=== PATIENT | male | born 1960 | race African-American/Black ===

== ENCOUNTER 2024-12-15 08:17 | Inpatient (IN) | payer OTHER ==
[~2024-12-15] VITALS: Ht 182.9 cm; Wt 90.7 kg
[2024-12-15 08:20] VITALS: TEMP 98.4
[2024-12-15] MEDS ORDERED: 0.9% SODIUM CHLORIDE 10 ML SYRINGE IVP ONE (08:47)
[2024-12-15] MEDS ORDERED: SODIUM CHLORIDE 0.9% 100 ML ONE (08:47)
[2024-12-15] MEDS ORDERED: IOHEXOL 350 MG/ML 100 ML VIAL ONE (08:47)
[2024-12-15 08:50] LABS: PLATELET COUNT (AUTO) 172 K/uL (150-450); RED BLOOD CELL COUNT(AUTO) 4.62 MIL/uL (4.50-5.90); RED CELL DISTRIBUTION WIDTH 13.8 % (11.5-14.5); WHITE BLOOD COUNT (AUTO) 9.8 K/uL (4.5-11.0)
[2024-12-15 08:57] LABS: CALCIUM, TOTAL 8.4 mg/dL (8.8-10.5); CREATININE 1.27 mg/dL (0.60-1.30); GLOMERULAR FILTR. RATE CALC > 60 mL/min (>60); GLUCOSE,RANDOM 91 mg/dL (70-110); SODIUM SERUM 144 mmol/L (136-145); UREA NITROGEN, BLOOD 25 mg/dL (7-18)
[2024-12-15] MEDS ORDERED: ASPIRIN 325 MG TABLET PO ONE (09:00)
[2024-12-15 09:01] LABS: ASPARTATE AMINOTRANSFERASE 36 U/L (15-37); TOTAL PROTEIN, SERUM 7.5 g/dL (6.4-8.2)
[2024-12-15 09:06] LABS: TROPONIN I-HIGH SENSITIVITY 146 ng/L (<76)
[2024-12-15 09:21] LABS: ALCOHOL, BLOOD (SERUM) 4.0 mg/dL (0-10)
[2024-12-15] MEDS: ASPIRIN 300 MG RECTAL SUPPOSITORY PR ONE (09:24)
[2024-12-15] MEDS ORDERED: HYDR25TA2 PO (10:11)
[2024-12-15] MEDS ORDERED: AMLO-257 PO (10:11)
[2024-12-15 10:28] VITALS: BP 164/100; PULSE 77; RESP 20; O2SAT 96
[2024-12-15 11:03] LABS: TROPONIN I-HIGH SENSITIVITY 152 ng/L (<76)
[2024-12-15] MEDS ORDERED: LABETALOL HCL 5 MG/ML 20 ML VIAL IVP PRN (12:00)
[2024-12-15] MEDS ORDERED: ONDANSETRON HCL 4 MG/2 ML VIAL IVP PRN (12:00)
[2024-12-15] MEDS ORDERED: ASPIRIN 81 MG CHEWABLE TABLET PO ONE (12:00)
[2024-12-15] MEDS ORDERED: ACETAMINOPHEN 325 MG TABLET PO PRN (12:00)
[2024-12-15] MEDS ORDERED: HEPARIN SODIUM,PORCINE 5,000 UNITS/ML VIAL SQ SCH (16:00)
[2024-12-15] MEDS ORDERED: DOCUSATE SODIUM 100 MG CAPSULE PO SCH (21:00)
[2024-12-15] MEDS ORDERED: ATORVASTATIN CALCIUM 40 MG TABLET PO SCH (21:00)
[2024-12-16] MEDS ORDERED: ASPIRIN 81 MG CHEWABLE TABLET PO SCH (09:00)
[2024-12-16] MEDS ORDERED: CLOPIDOGREL BISULFATE 75 MG TABLET PO SCH (09:00)
== END 2024-12-15 12:28 | disposition left against medical advice (07) | DRG 64 ==
LOC: EMS 08:17 → EDH 10:32 → 5N 11:45
PROVIDERS: ADMIT Internal Medicine; ATTEND Internal Medicine
DX: I63.9 Cerebral infarction, unspecified (principal); I21.4 Non-ST elevation (NSTEMI) myocardial infarction; E87.3 Alkalosis; I10 Essential (primary) hypertension; Z53.29 Procedure and treatment not carried out because of patient's decision for other reasons; Z96.649 Presence of unspecified artificial hip joint; R13.10 Dysphagia, unspecified; Z79.899 Other long term (current) drug therapy; Z86.72 Personal history of thrombophlebitis
CPT/HCPCS: 70496; 70498; 71045; 80053; 82948; 83690; 83735; 84484; 85025; 85610; 85730; 86850; 86900; 86901; 93005; 99291; G0480; J3490; J7050; 36415-L1; 36415-TC; 70450; 70450-TC